=== PATIENT | female | born 1975 | race Asian ===

== ENCOUNTER 2016-06-12 13:23 | Emergency (ER) | payer OTHER ==
[~2016-06-12] VITALS: Ht 165.1 cm; Wt 108.0 kg
[2016-06-12 14:34] LABS: PLATELET COUNT 334 K/uL (152-353)
[2016-06-12 14:38] LABS: POTASSIUM 3.6 mmol/L (3.6-5.2); SODIUM 136 mmol/L (136-145)
[2016-06-12] MEDS ORDERED: CHERATUSSI1 OR (15:36)
[2016-06-12] MEDS ORDERED: AMOX875T8 PO (15:36)
== END 2016-06-12 15:40 | disposition home or self-care (01) ==
LOC: ED 13:23
DX: J20.9 Acute bronchitis, unspecified (principal)
CPT/HCPCS: 36415; 80053; 85027; 87081; 87804; 87880; 99283